=== PATIENT | male | born 1960 | race African-American/Black ===

== ENCOUNTER 2018-09-10 13:21 | Emergency (ER) | payer OTHER ==
[2018-09-10] MEDS ORDERED: MORPHINE SULFATE 10 MG/ML INJ IV ONE (14:01)
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
[2018-09-10 14:35] LABS: ABSOLUTE EOSINOPHILS # (AUTO) 0.2 10^3/uL (0.0-0.6); ABSOLUTE LYMPHOCYTES (AUTO) 1.1 10^3/uL (0.5-4.7); ABSOLUTE MONOCYTES (AUTO) 0.5 10^3/uL (0.1-1.4); ABSOLUTE NEUT (AUTO) 3.6 10^3/uL (1.7-8.2); BASOPHILS % (AUTO) 0.6 % (0-2); EOSINOPHILS % (AUTO) 2.9 % (0-6); HEMATOCRIT 38.5 % (37.9-51.0); HEMOGLOBIN 12.7 g/dL (13.5-17.0); LYMPHOCYTES % (AUTO) 19.8 % (13-45); MEAN CORPUSCULAR HEMOGLOBIN 27.2 pg (27.0-33.4); MEAN CORPUSCULAR HGB CONC 33.1 g/dL (32.0-36.0); MEAN CORPUSCULAR VOLUME 82 fl (80-97); MONOCYTES % (AUTO) 9.6 % (3-13); PLATELET COUNT 324 10^3/uL (150-450); RED BLOOD COUNT 4.68 10^6/uL (4.35-5.55); SEGMENTED NEUTROPHILS % (AUTO) 67.1 % (42-78); TOTAL CELLS COUNTED % (AUTO) 100 %; WHITE BLOOD COUNT 5.4 10^3/uL (4.0-10.5)
[2018-09-10 14:42] LABS: INTERNATIONAL RATION (INR) 0.92; PROTHROMBIN TIME 12.9 SEC (11.4-15.4)
[2018-09-10 14:43] LABS: PARTIAL THROMBOPLASTIN TIME 31.8 SEC (23.5-35.8)
[2018-09-10 14:47] LABS: APPEARANCE,URINE CLEAR; BILIRUBIN,URINE NEGATIVE (NEGATIVE); COLOR,URINE STRAW; GLUCOSE, URINE >=500 mg/dL (NEGATIVE); KETONES,URINE NEGATIVE (NEGATIVE); LEUKOCYTE ESTERASE,URINE NEGATIVE (NEGATIVE); NITRITE,URINE NEGATIVE (NEGATIVE); PROTEIN,URINE >=500 mg/dL (NEGATIVE); URINE SPECIFIC GRAVITY 1.011; UROBILINOGEN,URINE NEGATIVE mg/dL (<2.0)
[2018-09-10 14:49] LABS: ALANINE AMINOTRANSFERASE 28 U/L (21-72); ALBUMIN 3.2 g/dL (3.5-5.0); ALKALINE PHOSPHATASE 90 U/L (38-126); ASPARTATE AMINO TRANSFERASE 24 U/L (17-59); BILIRUBIN,DIRECT 0.2 mg/dL (0.0-0.4); BILIRUBIN,TOTAL 0.3 mg/dL (0.2-1.3); BLOOD UREA NITROGEN 21 mg/dL (7-20); CALCIUM 8.5 mg/dL (8.4-10.2); GLUCOSE 338 mg/dL (75-110); TOTAL PROTEIN 5.9 g/dL (6.3-8.2)
[2018-09-10 14:54] LABS: CARBON DIOXIDE 30 mmol/L (22-30); CHLORIDE 104 mmol/L (98-107); SODIUM 138.3 mmol/L (137-145)
[2018-09-10 14:55] LABS: ANION GAP 4 (5-19)
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
[2018-09-10] MEDS ORDERED: HYDROMORPHONE HCL INJ/PF 2 MG/ML AMPULE IV ONE (15:12)
--- NOTE | 2018-09-10 16:48 | EKG REPORT ---
SEVERITY:- ABNORMAL ECG - SINUS RHYTHM LEFT ATRIAL ABNORMALITY LEFT ANTERIOR FASCICULAR BLOCK NONSPECIFIC T ABNORMALITIES, LATERAL LEADS : Confirmed by: Mike Santiago MD 10-Sep-2018 16:47:47
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
[2018-09-10] MEDS ORDERED: HYDRALAZINE HCL INJ/PF 20 MG/1 ML SDV IV ONE (17:17)
[2018-09-10] MEDS ORDERED: HYDROCODONE/ACETAMINOPHEN 5-325 MG (6 TAB/ER DISP) PO PRN (18:18)
[2018-09-10 18:37] VITALS: BP 145/94
--- NOTE | 2018-09-10 20:37 | EKG REPORT ---
SEVERITY:- ABNORMAL ECG - SINUS RHYTHM FIRST DEGREE AV BLOCK LEFT ATRIAL ABNORMALITY LEFT ANTERIOR FASCICULAR BLOCK NONSPECIFIC T ABNORMALITIES, LATERAL LEADS BORDERLINE PROLONGED QT INTERVAL : Confirmed by: Mike Santiago MD 10-Sep-2018 20:36:25
== END 2018-09-10 18:38 | disposition home or self-care (01) ==
LOC: ER 13:21
DX: R07.89 Other chest pain (principal); R10.811 Right upper quadrant abdominal tenderness; V43.52XA Car driver injured in collision with other type car in traffic accident, initial encounter; W22.11XA Striking against or struck by driver side automobile airbag, initial encounter; I10 Essential (primary) hypertension; E10.9 Type 1 diabetes mellitus without complications; Z79.82 Long term (current) use of aspirin
CPT/HCPCS: 93005; 99284; 96374; 96375; 36415; 85025; 85610; 85730; 80053; 81001; 84484; 71045; 70450; 71260; 72125; 74177; 93010; J0360; J2270; J1170

== ENCOUNTER 2018-09-22 13:38 | Emergency (ER) | payer OTHER ==
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
[2018-09-22 16:30] VITALS: BP 178/91
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
== END 2018-09-22 16:36 | disposition home or self-care (01) ==
LOC: ER 13:38
DX: R07.89 Other chest pain (principal); S20.219A Contusion of unspecified front wall of thorax, initial encounter; S29.011A Strain of muscle and tendon of front wall of thorax, initial encounter; V49.9XXA Car occupant (driver) (passenger) injured in unspecified traffic accident, initial encounter; E10.9 Type 1 diabetes mellitus without complications
CPT/HCPCS: 71046; 99283

== ENCOUNTER 2019-01-28 13:28 | Emergency (ER) | payer OTHER ==
[2019-01-28] MEDS ORDERED: LISINOPRIL 10 MG TABLET PO ONE (13:49)
--- NOTE | 2019-01-28 13:52 | ER Document Report ---
ED Medical Screen (RME) - General Chief Complaint: High Blood Pressure Stated Complaint: COUGH/POSSIBLE HIGH BLOOD PRESSURE Time Seen by Provider: 01/28/19 13:49 Mode of Arrival: Ambulatory Information source: Patient Notes: Patient presents complaining of productive cough for the past 3 weeks. Patient reports shortness of breath with the cough. Patient went to an urgent care and was told he had elevated blood pressure with an abnormal EKG. Patient states he has been out of his blood pressure medicine for the past 2 weeks. I have greeted and performed a rapid initial assessment of this patient. A comprehensive ED assessment and evaluation of the patient, analysis of test results and completion of the medical decision making process will be conducted by additional ED providers. TRAVEL OUTSIDE OF THE [place] IN LAST 30 DAYS: No - Related Data Allergies/Adverse Reactions: No Known Allergies Allergy (Verified 09/22/18 13:40) Past Medical History Endocrine Medical History: Reports: Hx Diabetes Mellitus Type 1 Renal/ Medical History: Denies: Hx Peritoneal Dialysis Past Surgical History: Reports: Hx Orthopedic Surgery - back Physical Exam - Vital signs Vitals: Temp Pulse Resp BP Pulse Ox 98 F 80 16 201/101 H 96 01/28/19 13:30 01/28/19 13:30 01/28/19 13:30 01/28/19 13:30 01/28/19 13:30 - Respiratory Respiratory status: No respiratory distress Breath sounds: Nonproductive cough Course - Vital Signs Vital signs: Temp Pulse Resp BP Pulse Ox 98 F 80 16 201/101 H 96 01/28/19 13:30 01/28/19 13:30 01/28/19 13:30 01/28/19 13:30 01/28/19 13:30
--- NOTE | 2019-01-28 14:22 | RADIOLOGY REPORT (SQ) ---
EXAM DESCRIPTION: CHEST 2 VIEWS COMPLETED DATE/TIME: 01/28/2019 2:08 pm REASON FOR STUDY: cough COMPARISON: 09/22/2018 NUMBER OF VIEWS: Two view. TECHNIQUE: Frontal and lateral radiographic views of the chest acquired. LIMITATIONS: None. FINDINGS: LUNGS AND PLEURA: Peribronchial cuffing and interstitial changes. No consolidation, effus ion, or pneumothorax. MEDIASTINUM AND HILAR STRUCTURES: No masses. No contour abnormalities. HEART AND VASCULAR STRUCTURES: Cardiac enlargement. BONES: No acute findings. HARDWARE: None in the chest. OTHER: No other significant finding. IMPRESSION: REACTIVE AIRWAY DISEASE VERSUS VIRAL SYNDROME. NO CONSOLIDATION. TECHNICAL DOCUMENTATION: JOB ID: [id number] [employer]- All Rights Reserved Reading location - IP/workstation name: [email or web address]
[2019-01-28 16:51] LABS: ABSOLUTE EOSINOPHILS # (AUTO) 0.2 10^3/uL (0.0-0.6); ABSOLUTE LYMPHOCYTES (AUTO) 1.1 10^3/uL (0.5-4.7); ABSOLUTE MONOCYTES (AUTO) 0.6 10^3/uL (0.1-1.4); ABSOLUTE NEUT (AUTO) 3.1 10^3/uL (1.7-8.2); BASOPHILS % (AUTO) 0.9 % (0-2); EOSINOPHILS % (AUTO) 4.8 % (0-6); HEMATOCRIT 39.7 % (37.9-51.0); LYMPHOCYTES % (AUTO) 20.8 % (13-45); MEAN CORPUSCULAR HEMOGLOBIN 27.4 pg (27.0-33.4); MEAN CORPUSCULAR HGB CONC 32.9 g/dL (32.0-36.0); MEAN CORPUSCULAR VOLUME 84 fl (80-97); MONOCYTES % (AUTO) 12.6 % (3-13); PLATELET COUNT 337 10^3/uL (150-450); RED BLOOD COUNT 4.75 10^6/uL (4.35-5.55); RED CELL DISTRIBUTION WIDTH 13.1 % (11.5-14.0); SEGMENTED NEUTROPHILS % (AUTO) 60.9 % (42-78); TOTAL CELLS COUNTED % (AUTO) 100 %; WHITE BLOOD COUNT 5.1 10^3/uL (4.0-10.5)
[2019-01-28 17:10] LABS: ALANINE AMINOTRANSFERASE 25 U/L (21-72); ALBUMIN 3.3 g/dL (3.5-5.0); ALKALINE PHOSPHATASE 105 U/L (38-126); ANION GAP 7 (5-19); ASPARTATE AMINO TRANSFERASE 25 U/L (17-59); BILIRUBIN,DIRECT 0.3 mg/dL (0.0-0.4); BILIRUBIN,TOTAL 0.5 mg/dL (0.2-1.3); BLOOD UREA NITROGEN 22 mg/dL (7-20); CALCIUM 8.6 mg/dL (8.4-10.2); CARBON DIOXIDE 28 mmol/L (22-30); CHLORIDE 107 mmol/L (98-107); GLUCOSE 171 mg/dL (75-110); POTASSIUM 4.8 mmol/L (3.6-5.0); SODIUM 142.4 mmol/L (137-145); TOTAL PROTEIN 6.4 g/dL (6.3-8.2)
--- NOTE | 2019-01-28 17:34 | EKG REPORT ---
SEVERITY:- ABNORMAL ECG - SINUS RHYTHM FIRST DEGREE AV BLOCK PROBABLE LEFT ATRIAL ABNORMALITY LEFT ANTERIOR FASCICULAR BLOCK NONSPECIFIC T ABNORMALITIES, LATERAL LEADS BORDERLINE PROLONGED QT INTERVAL : Confirmed by: Nidia Hutchins MD 28-Jan-2019 17:33:33
[2019-01-28] MEDS ORDERED: BENZONATATE 100 MG CAPSULE PO ONE (19:01)
[2019-01-28] MEDS ORDERED: ALBUTEROL SULFATE HFA (90 MCG/PUFF) 200 PUFF/8.5 GM MDI IH ONE (19:02)
--- NOTE | 2019-01-28 19:02 | ER Document Report ---
ED General - General Chief Complaint: High Blood Pressure Stated Complaint: COUGH/POSSIBLE HIGH BLOOD PRESSURE Time Seen by Provider: 01/28/19 13:49 Mode of Arrival: Ambulatory Notes: Patient is a 58-year-old male with past medical history of insulin-dependent diabetes, essential hypertension, currently off all medications, presents today from an urgent care due to concerns of 3 weeks of cough, elevated blood pressure and an abnormal EKG. The patient reports that he went to the urgent care for refill his blood pressure medications and to make sure that he did not need antibiotics. States he does not know why they got an EKG. Patient does report that he developed shortness of breath during episodes of severe coughing but not outside of these episodes. Denies any orthopnea, exertional dyspnea and denies any chest pain. States that he is also had nasal congestion, runny nose and a mild sore throat. Denies any history of CHF or coronary artery disease. Has not seen his primary doctor regarding today's concerns. Has not noted any seems to improve his symptoms, somewhat worsened by laughing or exhaling forcefully. Regards to symptoms as being mild to moderate, constant since onset. Or notes that his cough is somewhat worse in the morning. Not a smoker nor has he ever been. TRAVEL OUTSIDE OF THE [place] IN LAST 30 DAYS: No - Related Data Allergies/Adverse Reactions: No Known Allergies Allergy (Verified 09/22/18 13:40) Past Medical History - General Information source: Patient - Social History Smoking Status: Never Smoker Chew tobacco use (# tins/day): No Frequency of alcohol use: None Drug Abuse: None Family History: Reviewed & Not Pertinent Patient has suicidal ideation: No Patient has homicidal ideation: No - Past Medical History Cardiac Medical History: Reports: Hx Hypertension Endocrine Medical History: Reports: Hx Diabetes Mellitus Type 1 Renal/ Medical History: Denies: Hx Peritoneal Dialysis Past Surgical History: Reports: Hx Orthopedic Surgery - back Review of Systems - Review of Systems Notes: Constitutional: Negative for fever. HENT: Negative for sore throat. Eyes: Negative for visual changes. Cardiovascular: Negative for chest pain. Respiratory: Positive for cough Gastrointestinal: Negative for abdominal pain, vomiting or diarrhea. Genitourinary: Negative for dysuria. Musculoskeletal: Negative for back pain. Skin: Negative for rash. Neurological: Negative for headaches, weakness or numbness. 10 point ROS negative except as marked above and in HPI. Physical Exam - Vital signs Vitals: Temp Pulse Resp BP Pulse Ox 98 F 80 16 201/101 H 96 01/28/19 13:30 01/28/19 13:30 01/28/19 13:30 01/28/19 13:30 01/28/19 13:30 Interpretation: Hypertensive Notes: PHYSICAL EXAMINATION: GENERAL: Well-appearing, well-nourished and in no acute distress. HEAD: Atraumatic, normocephalic. EYES: Pupils equal round and reactive to light, extraocular movements intact, sclera anicteric, conjunctiva are normal. ENT: nares patent, oropharynx clear without exudates. Moist mucous membranes. NECK: Normal range of motion, supple without lymphadenopathy LUNGS: Breath sounds clear to auscultation bilaterally and equal. No wheezes rales or rhonchi. No B-lines. HEART: Regular rate and rhythm without murmurs, no pericardial effusion on bedside echocardiogram. ABDOMEN: Soft, nontender, normoactive bowel sounds. No guarding, no rebound. No masses appreciated. EXTREMITIES: Normal range of motion, trace edema of the bilateral lower extremities that is equal and symmetric. no cyanosis. NEUROLOGICAL: No focal neurological deficits. Moves all extremities spontaneously and on command. PSYCH: Normal mood, normal affect. SKIN: Warm, Dry, normal turgor, no rashes or lesions noted. Course - Re-evaluation Re-evalutation: 01/28/19 19:01 Patient presents with a clinical history and exam most consistent with an acute viral bronchitis. Patient was sent from an urgent care due to concerns of an abnormal EKG. Review of EKG shows that is identical to an EKG obtained in August of this year. It is uncertain to me why they obtain an EKG at the [facility] as the patient was complaining of cough and shortness of breath during the episodes of coughing but not outside of that time. The patient is very clear to state me that he has no shortness of breath or chest pain at this time and only developed shortness of breath when he has a very pronounced episode of coughing. He has no orthopnea, no exertional dyspnea, has no evidence of pulmonary edema on chest x-ray. Patient is overall well in appearance without tachypnea, hypoxemia, tachycardia, or difficulty with ambulation. Breath sounds are clear bilaterally. No fever. Labs show chronic kidney disease unchanged from previous. Patient has been out of his lisinopril for the past 2 weeks and I have represcribed this medication. At this time will discharge with return precautions and follow-up recommendations. Verbal discharge instructions given a the bedside and opportunity for questions given. Medication warnings reviewed. Patient is in agreement with this plan and has verbalized understanding of return precautions and the need for primary care follow-up in the next 24-[address]. - Vital Signs Vital signs: Temp Pulse Resp BP Pulse Ox 98 F 75 16 194/103 H 96 01/28/19 13:30 01/28/19 15:46 01/28/19 13:30 01/28/19 15:46 01/28/19 13:30 - Laboratory Result Diagrams: 01/28/19 16:35 01/28/19 16:35 Laboratory results interpreted by me: 01/28/19 01/28/19 16:35 16:35 Hgb 13.0 L BUN 22 H Creatinine 1.55 H Est GFR ( Amer) 56 L Est GFR (Non-Af Amer) 46 L Glucose 171 H Albumin 3.3 L - Diagnostic Test Radiology reviewed: Image reviewed, Reports reviewed Radiology results interpreted by me: 01/28/19 19:02 Chest x-ray: No acute infiltrate or pneumothorax - EKG Interpretation by Me Additional EKG results interpreted by me: 01/28/19 19:02 Sinus rhythm, first-degree no ST elevations or depressions. Lateral T wave inversions unchanged from previous. QTC 482. Discharge - Discharge Clinical Impression: Essential hypertension, Persistent cough Condition: Good Disposition: HOME, SELF-CARE Additional Instructions: You were seen today for blood pressure that was high. This is a long-term risk factor for multiple medical problems including heart attack and stroke. However, the blood pressure in of itself will not cause you to have an acute stroke or heart attack over the course of just several days or weeks. You need to have a gradual reduction of your blood pressure back to normal levels over the next several months in conjunction with your primary care physician. Return if you develop headache, weakness, numbness, chest pain, pass out, or have any other symptoms that are concerning to you. You were seen for symptoms most consistent with bronchitis. This can take up to 12 weeks to fully resolve. This is generally due to a viral infection. Please follow-up with your primary doctor in the next 2-3 days. Return if you develop worsening cough, vomiting, fever >100.4, pass out, begin coughing blood, or have any other symptoms that are concerning to you. Please use the medications prescribed today as directed. Prescriptions: Lisinopril 20 mg PO DAILY #30 tablet
[2019-01-28 19:16] VITALS: BP 187/101
== END 2019-01-28 19:16 | disposition home or self-care (01) ==
LOC: ER 13:28
DX: I12.9 Hypertensive chronic kidney disease with stage 1 through stage 4 chronic kidney disease, or unspecified chronic kidney disease (principal); E10.22 Type 1 diabetes mellitus with diabetic chronic kidney disease; N18.9 Chronic kidney disease, unspecified; T46.4X6A Underdosing of angiotensin-converting-enzyme inhibitors, initial encounter; Z91.128 Patient's intentional underdosing of medication regimen for other reason; Z91.14 Patient's other noncompliance with medication regimen; R05 Cough; R09.81 Nasal congestion; R09.89 Other specified symptoms and signs involving the circulatory and respiratory systems; J02.9 Acute pharyngitis, unspecified
CPT/HCPCS: 93005; 99284; 36415; 85025; 80053; 84484; 71046; 93010; J3490

== ENCOUNTER → 2019-10-12 | Outpatient (CLI) | payer BC ==
[2019-10-12 11:39] LABS: APPEARANCE,URINE CLEAR; BILIRUBIN,URINE NEGATIVE (NEGATIVE); COLOR,URINE YELLOW; GLUCOSE, URINE 50 mg/dL (NEGATIVE); KETONES,URINE NEGATIVE (NEGATIVE); LEUKOCYTE ESTERASE,URINE NEGATIVE (NEGATIVE); NITRITE,URINE NEGATIVE (NEGATIVE); PROTEIN,URINE >=500 mg/dL (NEGATIVE); UROBILINOGEN,URINE NEGATIVE mg/dL (<2.0)
[2019-10-12 11:42] LABS: ABSOLUTE BASOPHILS # (AUTO) 0.1 10^3/uL (0.0-0.2); ABSOLUTE EOSINOPHILS # (AUTO) 0.2 10^3/uL (0.0-0.6); ABSOLUTE LYMPHOCYTES (AUTO) 0.7 10^3/uL (0.5-4.7); ABSOLUTE MONOCYTES (AUTO) 0.5 10^3/uL (0.1-1.4); ABSOLUTE NEUT (AUTO) 2.9 10^3/uL (1.7-8.2); BASOPHILS % (AUTO) 1.3 % (0-2); EOSINOPHILS % (AUTO) 4.2 % (0-6); HEMATOCRIT 33.5 % (37.9-51.0); HEMOGLOBIN 11.1 g/dL (13.5-17.0); LYMPHOCYTES % (AUTO) 16.7 % (13-45); MEAN CORPUSCULAR HGB CONC 33.2 g/dL (32.0-36.0); MEAN CORPUSCULAR VOLUME 84 fl (80-97); MONOCYTES % (AUTO) 10.9 % (3-13); PLATELET COUNT 291 10^3/uL (150-450); RED BLOOD COUNT 3.96 10^6/uL (4.35-5.55); RED CELL DISTRIBUTION WIDTH 12.7 % (11.5-14.0); SEGMENTED NEUTROPHILS % (AUTO) 66.9 % (42-78); TOTAL CELLS COUNTED % (AUTO) 100 %; WHITE BLOOD COUNT 4.3 10^3/uL (4.0-10.5)
[2019-10-12 12:02] LABS: ALBUMIN 3.3 g/dL (3.5-5.0); ANION GAP 7 (5-19); BLOOD UREA NITROGEN 46 mg/dL (7-20); CALCIUM 8.4 mg/dL (8.4-10.2); CARBON DIOXIDE 26 mmol/L (22-30); CHLORIDE 109 mmol/L (98-107); GLUCOSE 177 mg/dL (75-110); IRON(TIBC) 70.3 ug/dL (49-181); PHOSPHORUS 4.2 mg/dL (2.5-4.5); POTASSIUM 5.1 mmol/L (3.6-5.0)
--- NOTE | 2019-10-12 15:19 | RADIOLOGY REPORT (SQ) ---
EXAM DESCRIPTION: U/S RETROPERITON (RENAL/AORTA) COMPLETED DATE/TIME: 10/12/2019 11:20 am REASON FOR STUDY: CKD III (N18.3) N18.3 CHRONIC KIDNEY DISEASE, STAGE 3 (MODERATE) COMPARISON: None. TECHNIQUE: Dynamic and static grayscale images acquired of the kidneys and bladder and recorded on P ACS. Additional selected color Doppler and spectral images recorded. LIMITATIONS: None. FINDINGS: RIGHT KIDNEY: The right kidney measures 11.3 cm in length. The echotexture of the renal p arenchymal is normal. The corticomedullary differentiation is preserved. There is no calcification, hydronephrosis or solid mass. LEFT KIDNEY: The left kidney measures 11 cm in length. The echotexture of the renal parenchymal is normal. The corticomedullary differentiation is preserved. There is an ovoid hypoechoic lesion in t he superior pole of the kidney that is favored to represent a cyst. There is no calcification, hydro nephrosis or solid mass. OTHER FINDINGS: No urinary bladder masses. IMPRESSION: No abnormality of the kidneys. TECHNICAL DOCUMENTATION: JOB ID: [id number] [employer]- All Rights Reserved Reading location - IP/workstation name: [email or web address]
[2019-10-14 13:20] LABS: MICROALBUMIN URINE 2232.3 ug/mL (Not Estab.)
== END ==
LOC: RAD 10:46
PROVIDERS: ATTEND Physician Assistant Medical
DX: N18.3 Chronic kidney disease, stage 3 (moderate) (principal); I12.9 Hypertensive chronic kidney disease with stage 1 through stage 4 chronic kidney disease, or unspecified chronic kidney disease; D63.1 Anemia in chronic kidney disease; E87.5 Hyperkalemia; E11.9 Type 2 diabetes mellitus without complications
CPT/HCPCS: 36415; 76770; 80069; 81001; 82043; 82570; 82728; 83540; 83550; 83970; 84443; 85025

== ENCOUNTER 2019-12-21 10:37 | Emergency (ER) | payer BC ==
--- NOTE | 2019-12-21 10:51 | ER Document Report ---
ED Medical Screen (RME) - General Chief Complaint: Abnormal Lab Results Stated Complaint: ABNORMAL LABS Time Seen by Provider: 12/21/19 10:43 Primary Care Provider: ИРИНА BUTLER PA-C [Primary Care Provider] - Follow up as needed Mode of Arrival: Ambulatory Information source: Patient Notes: 59-year-old male with history of high blood pressure chronic kidney disease presents to the emergency department with reports that his primary care provider, Kwame ellington, called him and told him to come the emergency department because his potassium was 6.3. He reports he had his labs drawn yesterday. Patient reports he feels fine no complaints. Denies chest pain shortness of breath. Denies fever vomiting diarrhea. I have greeted and performed a rapid initial assessment of this patient. A comprehensive ED assessment and evaluation of the patient, analysis of test results and completion of the medical decision making process will be conducted by additional ED providers. TRAVEL OUTSIDE OF THE [place] IN LAST 30 DAYS: No - Related Data Allergies/Adverse Reactions: No Known Allergies Allergy (Verified 09/22/18 13:40) Home Medications: asa, lisinopril, amlodipine, atorvastatin, clonidine, vit D, fe, calcitriol, humalog Past Medical History - Social History Chew tobacco use (# tins/day): No Frequency of alcohol use: None Drug Abuse: None - Past Medical History Cardiac Medical History: Reports: Hx Hypertension Endocrine Medical History: Reports: Hx Diabetes Mellitus Type 1 Renal/ Medical History: Denies: Hx Peritoneal Dialysis Past Surgical History: Reports: Hx Orthopedic Surgery - back Physical Exam - Vital signs Vitals: Temp Pulse Resp BP Pulse Ox 97.8 F 77 16 202/96 H 97 12/21/19 10:42 12/21/19 10:42 12/21/19 10:42 12/21/19 10:42 12/21/19 10:42 Course - Vital Signs Vital signs: Temp Pulse Resp BP Pulse Ox 97.8 F 77 16 202/96 H 97 12/21/19 10:44 12/21/19 10:42 12/21/19 10:42 12/21/19 10:42 12/21/19 10:42 Doctor's Discharge - Discharge Referrals: ИРИНА BUTLER PA-C [Primary Care Provider] - Follow up as needed
--- NOTE | 2019-12-21 11:05 | ER Document Report ---
ED General - General Chief Complaint: Abnormal Lab Results Stated Complaint: ABNORMAL LABS Time Seen by Provider: 12/21/19 10:43 Primary Care Provider: ИРИНА BUTLER PA-C [ALLIED HEALTH PROFESSIONAL] - Follow up as needed Mode of Arrival: Ambulatory Notes: CHIEF COMPLAINT: Abnormal lab work HPI: 59-year-old male with history of type 1 diabetes who takes 70/30 insulin twice daily as well as chronic kidney disease presenting for possible hyperkalemia. Patient states he had lab work drawn routinely by his PCP yesterday was called at work today told he needed to come to the emergency dep artment because his potassium was elevated at 6.3. Patient denies any physical complaints at this time. ROS: See HPI - all other systems were reviewed and are otherwise negative Constitutional: no fever Eyes: no drainage, no blurred vision ENT: no runny nose, no sore throat Cardiovascular: no chest pain Resp: no SOB, no cough GI: no vomiting, no diarrhea, no abdominal pain : no dysuria Integumentary: no rash Allergy: no hives Musculoskeletal: no extremity pain or swelling Neurological: no numbness/tingling, no weakness MEDICATIONS: I agree with the patient medications as charted by the RN. ALLERGIES: I agree with the allergies as charted by the RN. PAST MEDICAL HISTORY/PAST SURGICAL HISTORY: Reviewed and agree as charted by RN. SOCIAL HISTORY: Reviewed and agree as charted by RN. FAMILY HISTORY: No significant familial comorbid conditions directly related to patient complaint EXAM: Reviewed vital signs as charted by RN. CONSTITUTIONAL: Alert and oriented and responds appropriately to questions. Well-appearing; well-nourished HEAD: Normocephalic; atraumatic EYES: PERRL; Conjunctivae clear, sclerae non-icteric ENT: normal nose; no rhinorrhea; moist mucous membranes; pharynx without lesions noted, no uvula edema or deviation, no tonsillar hypertrophy, phonation normal NECK: Supple without meningismus; non-tender; no cervical lymphadenopathy, no masses CARD: RRR; no murmurs, no clicks, no rubs, no gallops; symmetric distal pulses RESP: Normal chest excursion without splinting or tachypnea; breath sounds clear and equal bilaterally; no wheezes, no rhonchi, no rales, pulse oximetry 98% on room air not hypoxic ABD/GI: Normal bowel sounds; non-distended; soft, non-tender, no rebound, no guarding; no palpable organomegaly or masses. BACK: The back appears normal and is non-tender to palpation, there is no CVA tenderness EXT: Normal ROM in all joints; non-tender to palpation; no cyanosis, no effusions, no edema SKIN: Normal color for age and race; warm; dry; good turgor; no acute lesions noted NEURO: Moves all extremities equally; Motor and sensory function intact PSYCH: The patient's mood and manner are appropriate. Grooming and personal hygiene are appropriate. MDM: 59-year-old male presenting for possible hyperkalemia. Will recheck lab work and proceed accordingly TRAVEL OUTSIDE OF THE [place] IN LAST 30 DAYS: No - Related Data Allergies/Adverse Reactions: No Known Allergies Allergy (Verified 09/22/18 13:40) Home Medications: asa, lisinopril, amlodipine, atorvastatin, clonidine, vit D, fe, calcitriol, humalog Past Medical History - General Information source: Patient - Social History Smoking Status: Never Smoker Chew tobacco use (# tins/day): No Frequency of alcohol use: None Drug Abuse: None Family History: Reviewed & Not Pertinent Patient has suicidal ideation: No Patient has homicidal ideation: No - Past Medical History Cardiac Medical History: Reports: Hx Hypertension Endocrine Medical History: Reports: Hx Diabetes Mellitus Type 1 Renal/ Medical History: Denies: Hx Peritoneal Dialysis Past Surgical History: Reports: Hx Orthopedic Surgery - back Physical Exam - Vital signs Vitals: Temp Pulse Resp BP Pulse Ox 97.8 F 77 16 202/96 H 97 12/21/19 10:42 12/21/19 10:42 12/21/19 10:42 12/21/19 10:42 12/21/19 10:42 Course - Re-evaluation Re-evalutation: 12/21/19 12:04 Patient was noted to be mildly hypertensive. Patient states he did take his blood pressure medication this morning 12/21/19 12:[address] Roberto Ace, patient supervisor [employer]. Request we have patient stop the lisinopril. Patient does state that he is on clonidine and amlodipine. Dr. Ace indicates we should increase the clonidine dosing to 0.2 twice daily. Patient will be given treatment for hyperkalemia here, recheck potassium 2 hours after treatment and fluids if it is trending down patient may be discharged as he is otherwise asymptomatic to follow-up for repeat lab work on Tuesday with Dr. Ace 12/21/19 16:33 Creatinine down to 3.61, potassium down to 4.5. Blood pressure is improved. Patient is to stop lisinopril start clonidine 0.2 mg twice daily. Continue amlodipine, follow-up with Dr. Ace on Tuesday - Vital Signs Vital signs: Temp Pulse Resp BP Pulse Ox 98.0 F 77 20 207/93 H 99 12/21/19 13:33 12/21/19 10:42 12/21/19 15:01 12/21/19 14:31 12/21/19 15:01 - Laboratory Result Diagrams: 12/21/19 11:49 12/21/19 15:25 Laboratory results interpreted by me: 12/21/19 12/21/19 12/21/19 11:49 11:49 13:24 RBC 3.51 L Hgb 10.0 L Hct 29.7 L Potassium 5.8 H Chloride Anion Gap BUN 38 H Creatinine 3.74 H Est GFR ( Amer) 20 L Est GFR (MDRD) Non-Af 17 L Glucose 162 H POC Glucose 142 H Total Protein 6.1 L Albumin 3.2 L 12/21/19 15:25 RBC Hgb Hct Potassium Chloride 109 H Anion Gap 4 L BUN 37 H Creatinine 3.61 H Est GFR ( Amer) 21 L Est GFR (MDRD) Non-Af 17 L Glucose POC Glucose Total Protein Albumin 3.4 L Discharge - Discharge Clinical Impression: Hyperkalemia, Renal insufficiency Condition: Stable Disposition: HOME, SELF-CARE Additional Instructions: Stop the lisinopril. Increase your daily dose of clonidine to 0.2 mg twice daily. Lower potassium containing foods at home. Follow-up with Dr. Ace on Tuesday for repeat potassium levels and evaluation Referrals: ИРИНА BUTLER PA-C [ALLIED HEALTH PROFESSIONAL] - Follow up as needed
[2019-12-21 12:06] LABS: ABSOLUTE BASOPHILS # (AUTO) 0.1 10^3/uL (0.0-0.2); ABSOLUTE EOSINOPHILS # (AUTO) 0.2 10^3/uL (0.0-0.6); ABSOLUTE LYMPHOCYTES (AUTO) 0.8 10^3/uL (0.5-4.7); ABSOLUTE MONOCYTES (AUTO) 0.6 10^3/uL (0.1-1.4); ABSOLUTE NEUT (AUTO) 3.7 10^3/uL (1.7-8.2); EOSINOPHILS % (AUTO) 3.7 % (0-6); HEMATOCRIT 29.7 % (37.9-51.0); LYMPHOCYTES % (AUTO) 15.4 % (13-45); MEAN CORPUSCULAR HEMOGLOBIN 28.6 pg (27.0-33.4); MEAN CORPUSCULAR HGB CONC 33.8 g/dL (32.0-36.0); MEAN CORPUSCULAR VOLUME 85 fl (80-97); MONOCYTES % (AUTO) 10.9 % (3-13); PLATELET COUNT 310 10^3/uL (150-450); RED BLOOD COUNT 3.51 10^6/uL (4.35-5.55); RED CELL DISTRIBUTION WIDTH 13.6 % (11.5-14.0); TOTAL CELLS COUNTED % (AUTO) 100 %; WHITE BLOOD COUNT 5.3 10^3/uL (4.0-10.5)
[2019-12-21 12:22] LABS: ALBUMIN 3.2 g/dL (3.5-5.0); ALKALINE PHOSPHATASE 96 U/L (38-126); ANION GAP 6 (5-19); ASPARTATE AMINO TRANSFERASE 21 U/L (17-59); BILIRUBIN,TOTAL 0.2 mg/dL (0.2-1.3); BLOOD UREA NITROGEN 38 mg/dL (7-20); CALCIUM 8.5 mg/dL (8.4-10.2); CARBON DIOXIDE 27 mmol/L (22-30); CHLORIDE 106 mmol/L (98-107); GLUCOSE 162 mg/dL (75-110); POTASSIUM 5.8 mmol/L (3.6-5.0); TOTAL PROTEIN 6.1 g/dL (6.3-8.2)
[2019-12-21] MEDS ORDERED: CALCIUM GLUCONATE 1000 MG/10 ML INJ IV ONE (12:37)
[2019-12-21] MEDS ORDERED: INSULIN REG, HUMAN 100 UNIT/ML 3 ML VIAL (PYX) IV ONE (12:38)
[2019-12-21] MEDS ORDERED: DEXTROSE 50%-WATER 25 GM/50 ML DISP.SYRIN IV ONE (12:38)
[2019-12-21] MEDS ORDERED: NORMAL SALINE 1000 ML 1,000 ML IV ONE (12:39)
[2019-12-21] MEDS ORDERED: SODIUM POLYSTYRENE SULFONATE 15 GM/60 ML PO ONE (12:39)
[2019-12-21] MEDS ORDERED: CLONIDINE HCL 0.1 MG TABLET PO ONE (14:13)
[2019-12-21 15:59] LABS: ALBUMIN 3.4 g/dL (3.5-5.0); ALKALINE PHOSPHATASE 106 U/L (38-126); ASPARTATE AMINO TRANSFERASE 21 U/L (17-59); BILIRUBIN,TOTAL 0.4 mg/dL (0.2-1.3); BLOOD UREA NITROGEN 37 mg/dL (7-20); CARBON DIOXIDE 28 mmol/L (22-30); CHLORIDE 109 mmol/L (98-107); GLUCOSE 76 mg/dL (75-110); TOTAL PROTEIN 6.3 g/dL (6.3-8.2)
[2019-12-21 16:26] LABS: ANION GAP 4 (5-19); POTASSIUM 4.5 mmol/L (3.6-5.0)
[2019-12-21 16:58] VITALS: BP 186/92
--- NOTE | 2019-12-23 11:07 | EKG REPORT ---
SEVERITY:- ABNORMAL ECG - SINUS RHYTHM PROBABLE LEFT ATRIAL ABNORMALITY LEFT ANTERIOR FASCICULAR BLOCK NONSPECIFIC T ABNORMALITIES, LATERAL LEADS : Confirmed by: Caroline Ramirez 23-Dec-2019 11:05:50
== END 2019-12-21 16:58 | disposition home or self-care (01) ==
LOC: ER 10:37
DX: E87.5 Hyperkalemia (principal); N28.9 Disorder of kidney and ureter, unspecified; E10.9 Type 1 diabetes mellitus without complications; Z79.4 Long term (current) use of insulin
CPT/HCPCS: 93005; 99283; 96374; 96361; 96375; 36415; 82962; 85025; 87070; 80053; 93010; J0610; J3490; J1815; J7030

== ENCOUNTER → 2020-01-14 | Day surgery (SDC) | payer BC ==
[2020-01-14 06:53] LABS: ABSOLUTE EOSINOPHILS # (AUTO) 0.3 10^3/uL (0.0-0.6); ABSOLUTE LYMPHOCYTES (AUTO) 1.1 10^3/uL (0.5-4.7); ABSOLUTE MONOCYTES (AUTO) 0.7 10^3/uL (0.1-1.4); BASOPHILS % (AUTO) 0.9 % (0-2); EOSINOPHILS % (AUTO) 5.5 % (0-6); HEMATOCRIT 32.3 % (37.9-51.0); HEMOGLOBIN 10.7 g/dL (13.5-17.0); MEAN CORPUSCULAR HEMOGLOBIN 27.7 pg (27.0-33.4); MEAN CORPUSCULAR VOLUME 84 fl (80-97); MONOCYTES % (AUTO) 13.5 % (3-13); PLATELET COUNT 293 10^3/uL (150-450); RED BLOOD COUNT 3.85 10^6/uL (4.35-5.55); RED CELL DISTRIBUTION WIDTH 13.3 % (11.5-14.0); SEGMENTED NEUTROPHILS % (AUTO) 59.1 % (42-78); TOTAL CELLS COUNTED % (AUTO) 100 %; WHITE BLOOD COUNT 5.1 10^3/uL (4.0-10.5)
[2020-01-14 07:00] LABS: INTERNATIONAL RATION (INR) 1.07; PROTHROMBIN TIME 13.9 SEC (11.4-15.4)
[2020-01-14 07:01] LABS: PARTIAL THROMBOPLASTIN TIME 32.6 SEC (23.5-35.8)
[2020-01-14 07:05] VITALS: BP 197/108
[2020-01-14 07:12] LABS: BLOOD UREA NITROGEN 52 mg/dL (7-20); GLUCOSE 150 mg/dL (75-110)
== END ==
LOC: RAD 05:17
PROVIDERS: ATTEND Physician Assistant Medical
DX: N18.3 Chronic kidney disease, stage 3 (moderate) (principal); R80.9 Proteinuria, unspecified; Z53.9 Procedure and treatment not carried out, unspecified reason
CPT/HCPCS: 36415; 82565; 82947; 84520; 85025; 85610; 85730

== ENCOUNTER 2020-01-17 05:41 | Day surgery (SDC) | payer BC ==
[2020-01-17] MEDS ORDERED: MIDAZOLAM 2 MG/2 ML INJ ONE (08:01)
[2020-01-17] MEDS ORDERED: FENTANYL CITRATE INJ/PF 100 MCG/2 ML AMPUL ONE (08:02)
[2020-01-17 10:55] VITALS: BP 158/89
--- NOTE | 2020-01-17 13:15 | RADIOLOGY REPORT (SQ) ---
EXAM DESCRIPTION: CT BIOPSY RENAL; CT NEEDLE PLACEMENT IMAGES COMPLETED DATE/TIME: 01/17/2020 9:04 am REASON FOR STUDY: CHRONIC KIDNEY DISEASE, STAGE 3 N18.3 CHRONIC KIDNEY DISEASE, STAGE 3 (MODERATE) R80.9 PROTEINURIA, UNSPECIFIED COMPARISON: None. RADIATION DOSE: CT Rad equipment meets quality standard of care and radiation dose reduction techniq ues were employed. CTDIvol: 4.0 - 20.3 mGy. DLP: 580 mGy-cm. mGy. LIMITATIONS: None. PROCEDURE: After obtaining informed consent and explaining the risks and benefits of conscious sedat ion,the patient agreed to the procedure. Preliminary CT scanning to localize the biopsy site was performed. A site was marked on the left kid toro and time out was performed. Procedure was performed using CT fluoroscopy. Total exposure time: [address] fluoroscopic images were obtained and saved to PACS. IV conscious sedation was administered and physician direction by the registered nurse using 1 millig chasidy of Versed and 50 micrograms of fentanyl. Physiologic monitoring was provided before, during, and after sedation. The total sedation time was 30 minutes. Documentation face to face time, the performing proceduralist, spent monitoring the patient: 22 minut es. After sterile skin prep, local lidocaine for skin and deep tissue anesthesia, the left kidney was loc alized. A coaxial 18 needle was used to obtain 3 cores of tissue from the left kidney. The biopsy tr act was embolized with Gelfoam. All CT scanners at this facility use dose modulation, iterative reconstruction, and/or weight based d osing when appropriate to reduce radiation dose to as low as reasonably achievable (ALARA). [facility]: Dose Right [facility]: CareDose [facility]: Dose Right [facility]: Teradose 4D [facility]: Indotrading FINDINGS: There were no immediate complications. Pathology is pending at the time of dictation. IMPRESSION: CT GUIDED LEFT KIDNEY CORTICAL BIOPSY. COMMENT: Patient medication list reviewed:Yes- Quality ID# [id number]:Eligible professional attests to docu menting in the medical record they obtained, updated, or reviewed the patient's current medications.. TECHNICAL DOCUMENTATION: JOB ID: [id number] Quality ID #[id number]: Final reports for procedures using fluoroscopy that document radiation exposure jillian gianluca, or exposure time and number of fluorographic images (if radiation exposure indices are not avail able) Quality ID # [id number]: Final reports with documentation of one or more dose reduction techniques (e.g., Au tomated exposure control, adjustment of the mA and/or kV according to patient size, use of iterative reconstruction technique) 2010 [employer]- All Rights Reserved Reading location - IP/workstation name: [email or web address]
== END 2020-01-17 10:35 | disposition home or self-care (01) ==
LOC: RAD 05:41
PROVIDERS: ATTEND Physician Assistant Medical
DX: E11.22 Type 2 diabetes mellitus with diabetic chronic kidney disease (principal); I12.9 Hypertensive chronic kidney disease with stage 1 through stage 4 chronic kidney disease, or unspecified chronic kidney disease; N18.3 Chronic kidney disease, stage 3 (moderate); R80.9 Proteinuria, unspecified; Z79.899 Other long term (current) drug therapy; Z79.82 Long term (current) use of aspirin; E78.5 Hyperlipidemia, unspecified; Z88.8 Allergy status to other drugs, medicaments and biological substances; N25.0 Renal osteodystrophy; E87.5 Hyperkalemia
CPT/HCPCS: 82962; 88346 ×2; 88348 ×2; 88313 ×2; 77012; 50200; J2250; J3010

== ENCOUNTER → 2020-02-18 | Day surgery (SDC) | payer BC, MEDICAID ==
[2020-02-18 06:36] LABS: ABSOLUTE BASOPHILS # (AUTO) 0.1 10^3/uL (0.0-0.2); ABSOLUTE EOSINOPHILS # (AUTO) 0.3 10^3/uL (0.0-0.6); ABSOLUTE MONOCYTES (AUTO) 0.8 10^3/uL (0.1-1.4); ABSOLUTE NEUT (AUTO) 3.7 10^3/uL (1.7-8.2); EOSINOPHILS % (AUTO) 5.3 % (0-6); HEMATOCRIT 31.7 % (37.9-51.0); HEMOGLOBIN 10.6 g/dL (13.5-17.0); LYMPHOCYTES % (AUTO) 16.8 % (13-45); MEAN CORPUSCULAR HEMOGLOBIN 27.7 pg (27.0-33.4); MEAN CORPUSCULAR HGB CONC 33.5 g/dL (32.0-36.0); MEAN CORPUSCULAR VOLUME 83 fl (80-97); MONOCYTES % (AUTO) 14.4 % (3-13); PLATELET COUNT 267 10^3/uL (150-450); RED BLOOD COUNT 3.82 10^6/uL (4.35-5.55); RED CELL DISTRIBUTION WIDTH 13.1 % (11.5-14.0); SEGMENTED NEUTROPHILS % (AUTO) 62.5 % (42-78); TOTAL CELLS COUNTED % (AUTO) 100 %; WHITE BLOOD COUNT 5.9 10^3/uL (4.0-10.5)
[2020-02-18 06:42] LABS: INTERNATIONAL RATION (INR) 1.09; PROTHROMBIN TIME 14.2 SEC (11.4-15.4)
[2020-02-18 06:43] LABS: PARTIAL THROMBOPLASTIN TIME 32.3 SEC (23.5-35.8)
[2020-02-18 06:58] LABS: BLOOD UREA NITROGEN 51 mg/dL (7-20); GLUCOSE 159 mg/dL (75-110)
[2020-02-18 07:07] VITALS: BP 232/125
== END ==
LOC: RAD 05:37
PROVIDERS: ATTEND Physician Assistant Medical
DX: N18.3 Chronic kidney disease, stage 3 (moderate) (principal); Z53.8 Procedure and treatment not carried out for other reasons
CPT/HCPCS: 36415; 82565; 82947; 84520; 85025; 85610; 85730

== ENCOUNTER 2020-02-22 05:40 | Day surgery (SDC) | payer BC ==
[2020-02-22 06:33] LABS: HEMATOCRIT 29.7 % (37.9-51.0); HEMOGLOBIN 9.7 g/dL (13.5-17.0); MEAN CORPUSCULAR HEMOGLOBIN 27.8 pg (27.0-33.4); MEAN CORPUSCULAR HGB CONC 32.8 g/dL (32.0-36.0); MEAN CORPUSCULAR VOLUME 85 fl (80-97); PLATELET COUNT 290 10^3/uL (150-450); RED BLOOD COUNT 3.49 10^6/uL (4.35-5.55); RED CELL DISTRIBUTION WIDTH 13.1 % (11.5-14.0); WHITE BLOOD COUNT 6.5 10^3/uL (4.0-10.5)
[2020-02-22 06:42] LABS: INTERNATIONAL RATION (INR) 1.03; PROTHROMBIN TIME 13.5 SEC (11.4-15.4)
[2020-02-22 06:43] LABS: PARTIAL THROMBOPLASTIN TIME 32.5 SEC (23.5-35.8)
[2020-02-22 06:52] LABS: BLOOD UREA NITROGEN 67 mg/dL (7-20); GLUCOSE 171 mg/dL (75-110)
[2020-02-22] MEDS ORDERED: AMLODIPINE BESYLATE 10 MG TABLET PO ONE (09:00)
[2020-02-22] MEDS ORDERED: CLONIDINE HCL 0.2 MG TABLET PO ONE (09:00)
[2020-02-22] MEDS ORDERED: FENTANYL CITRATE INJ/PF 100 MCG/2 ML AMPUL ONE (09:59)
[2020-02-22] MEDS ORDERED: MIDAZOLAM 2 MG/2 ML INJ ONE (09:59)
--- NOTE | 2020-02-22 11:00 | RADIOLOGY REPORT (SQ) ---
EXAM DESCRIPTION: CT BIOPSY RENAL; CT NEEDLE PLACEMENT IMAGES COMPLETED DATE/TIME: 02/22/2020 10:27 am; 02/22/2020 10:25 am REASON FOR STUDY: CKD STAGE 3; CKD STAGE 3, RENAL BIOPSY N18.3 CHRONIC KIDNEY DISEASE, STAGE 3 (MOD ERATE) COMPARISON: 01/17/2020 RADIATION DOSE: CT Rad equipment meets quality standard of care and radiation dose reduction techniq ues were employed. CTDIvol: 4.8 - 20.3 mGy. DLP: 622 mGy-cm. mGy. LIMITATIONS: None. PROCEDURE: After obtaining informed consent and explaining the risks and benefits of conscious sedat ion,the patient agreed to the procedure. Preliminary CT scanning to localize the biopsy site was performed. A site was marked on the left kid toro and time out was performed. Procedure was performed using CT fluoroscopy. Total exposure time: 1 5.[address] fluoroscopic images were obtained and saved to PACS. IV conscious sedation was administered and physician direction by the registered nurse using 1 millig chasidy of Versed and 50 micrograms of fentanyl. Physiologic monitoring was provided before, during, and after sedation. The total sedation time was 30 minutes. Documentation face to face time, the performing proceduralist, spent monitoring the patient: 30 minut es. After sterile skin prep, 10 cc 1% lidocaine was utilized for local sedation. A coaxial 17 gauge 15 c m was advanced toward the lower pole cortex of the left kidney. After needle position confirmed mult iple 18 gauge core biopsies were obtained. Additional imaging was obtained demonstrating needle biop sy trough across the lower pole cortex. 4 cores of tissue from the left kidney were obtained. The b iopsy tract was embolized with Gelfoam. All CT scanners at this facility use dose modulation, iterative reconstruction, and/or weight based d osing when appropriate to reduce radiation dose to as low as reasonably achievable (ALARA). [facility]: Dose Right [facility]: CareDose [facility]: Dose Right [facility]: Teradose 4D [facility]: Lighting by LED FINDINGS: Intraprocedural imaging demonstrates needle at the lower pole renal cortex with biopsy tro ugh across the lower cortex. No evidence of immediate complication. Pathology pending at the time of dictation. IMPRESSION: CT GUIDED LEFT KIDNEY CORTICAL BIOPSY. COMMENT: Patient medication list reviewed:Yes- Quality ID# [id number]:Eligible professional attests to docu menting in the medical record they obtained, updated, or reviewed the patient's current medications.. TECHNICAL DOCUMENTATION: JOB ID: [id number] Quality ID #[id number]: Final reports for procedures using fluoroscopy that document radiation exposure jillian gianluca, or exposure time and number of fluorographic images (if radiation exposure indices are not avail able) Quality ID # [id number]: Final reports with documentation of one or more dose reduction techniques (e.g., Au tomated exposure control, adjustment of the mA and/or kV according to patient size, use of iterative reconstruction technique) 2010 [employer]- All Rights Reserved Reading location - IP/workstation name: [email or web address]
--- NOTE | 2020-02-22 11:00 | RADIOLOGY REPORT (SQ) ---
EXAM DESCRIPTION: CT BIOPSY RENAL; CT NEEDLE PLACEMENT IMAGES COMPLETED DATE/TIME: 02/22/2020 10:27 am; 02/22/2020 10:25 am REASON FOR STUDY: CKD STAGE 3; CKD STAGE 3, RENAL BIOPSY N18.3 CHRONIC KIDNEY DISEASE, STAGE 3 (MOD ERATE) COMPARISON: 01/17/2020 RADIATION DOSE: CT Rad equipment meets quality standard of care and radiation dose reduction techniq ues were employed. CTDIvol: 4.8 - 20.3 mGy. DLP: 622 mGy-cm. mGy. LIMITATIONS: None. PROCEDURE: After obtaining informed consent and explaining the risks and benefits of conscious sedat ion,the patient agreed to the procedure. Preliminary CT scanning to localize the biopsy site was performed. A site was marked on the left kid toro and time out was performed. Procedure was performed using CT fluoroscopy. Total exposure time: 1 5.[address] fluoroscopic images were obtained and saved to PACS. IV conscious sedation was administered and physician direction by the registered nurse using 1 millig chasidy of Versed and 50 micrograms of fentanyl. Physiologic monitoring was provided before, during, and after sedation. The total sedation time was 30 minutes. Documentation face to face time, the performing proceduralist, spent monitoring the patient: 30 minut es. After sterile skin prep, 10 cc 1% lidocaine was utilized for local sedation. A coaxial 17 gauge 15 c m was advanced toward the lower pole cortex of the left kidney. After needle position confirmed mult iple 18 gauge core biopsies were obtained. Additional imaging was obtained demonstrating needle biop sy trough across the lower pole cortex. 4 cores of tissue from the left kidney were obtained. The b iopsy tract was embolized with Gelfoam. All CT scanners at this facility use dose modulation, iterative reconstruction, and/or weight based d osing when appropriate to reduce radiation dose to as low as reasonably achievable (ALARA). [facility]: Dose Right [facility]: CareDose [facility]: Dose Right [facility]: Teradose 4D [facility]: Symvato FINDINGS: Intraprocedural imaging demonstrates needle at the lower pole renal cortex with biopsy tro ugh across the lower cortex. No evidence of immediate complication. Pathology pending at the time of dictation. IMPRESSION: CT GUIDED LEFT KIDNEY CORTICAL BIOPSY. COMMENT: Patient medication list reviewed:Yes- Quality ID# [id number]:Eligible professional attests to docu menting in the medical record they obtained, updated, or reviewed the patient's current medications.. TECHNICAL DOCUMENTATION: JOB ID: [id number] Quality ID #[id number]: Final reports for procedures using fluoroscopy that document radiation exposure jillian gianluca, or exposure time and number of fluorographic images (if radiation exposure indices are not avail able) Quality ID # [id number]: Final reports with documentation of one or more dose reduction techniques (e.g., Au tomated exposure control, adjustment of the mA and/or kV according to patient size, use of iterative reconstruction technique) 2010 [employer]- All Rights Reserved Reading location - IP/workstation name: [email or web address]
[2020-02-22 12:31] VITALS: BP 177/95
== END 2020-02-22 12:25 | disposition home or self-care (01) ==
LOC: RAD 05:40
PROVIDERS: ATTEND Physician Assistant Medical
DX: E11.22 Type 2 diabetes mellitus with diabetic chronic kidney disease (principal); I12.9 Hypertensive chronic kidney disease with stage 1 through stage 4 chronic kidney disease, or unspecified chronic kidney disease; N18.3 Chronic kidney disease, stage 3 (moderate); Z03.818 Encounter for observation for suspected exposure to other biological agents ruled out; E78.5 Hyperlipidemia, unspecified; Z79.899 Other long term (current) drug therapy; R80.1 Persistent proteinuria, unspecified; N25.0 Renal osteodystrophy; D64.89 Other specified anemias
CPT/HCPCS: 36415; 84520; 82565; 82947; 85027; 85610; 85730; 88346 ×2; 88348 ×2; 88313 ×2; 77012; 50200; J2250; J3010

== ENCOUNTER → 2020-03-14 | Outpatient (CLI) | payer BC ==
[2020-03-14 10:53] LABS: HEMATOCRIT 30.1 % (37.9-51.0); HEMOGLOBIN 9.8 g/dL (13.5-17.0); MEAN CORPUSCULAR HEMOGLOBIN 27.4 pg (27.0-33.4); MEAN CORPUSCULAR HGB CONC 32.5 g/dL (32.0-36.0); MEAN CORPUSCULAR VOLUME 84 fl (80-97); PLATELET COUNT 267 10^3/uL (150-450); RED BLOOD COUNT 3.56 10^6/uL (4.35-5.55); RED CELL DISTRIBUTION WIDTH 13.7 % (11.5-14.0); WHITE BLOOD COUNT 5.8 10^3/uL (4.0-10.5)
[2020-03-14 10:58] LABS: APPEARANCE,URINE CLEAR; BILIRUBIN,URINE NEGATIVE (NEGATIVE); COLOR,URINE STRAW; GLUCOSE, URINE 50 mg/dL (NEGATIVE); KETONES,URINE NEGATIVE (NEGATIVE); LEUKOCYTE ESTERASE,URINE NEGATIVE (NEGATIVE); NITRITE,URINE NEGATIVE (NEGATIVE); PROTEIN,URINE >=500 mg/dL (NEGATIVE); URINE SPECIFIC GRAVITY 1.009; UROBILINOGEN,URINE NEGATIVE mg/dL (<2.0)
[2020-03-14 11:14] LABS: ALBUMIN 3.1 g/dL (3.5-5.0); BLOOD UREA NITROGEN 53 mg/dL (7-20); CALCIUM 8.2 mg/dL (8.4-10.2); GLUCOSE 80 mg/dL (75-110); PHOSPHORUS 5.6 mg/dL (2.5-4.5); POTASSIUM 5.7 mmol/L (3.6-5.0)
[2020-03-14 11:19] LABS: CARBON DIOXIDE 25 mmol/L (22-30); CHLORIDE 110 mmol/L (98-107)
[2020-03-14 11:25] LABS: ANION GAP 4 (5-19)
[2020-03-14 11:42] LABS: URINE CREATININE 56.6 mg/dL (22-328)
[2020-03-14 11:54] LABS: UR PRO/CREAT RATIO RESULT 8.7 mg/mg (0.0-0.2); URINE PROTEIN 490.9 mg/dL (<12)
== END ==
LOC: OD 10:16
PROVIDERS: ATTEND Physician Assistant Medical
DX: N25.0 Renal osteodystrophy (principal)
CPT/HCPCS: 36415; 80069; 81001; 82570; 83970; 84156; 85027

== ENCOUNTER → 2020-03-17 | Outpatient (CLI) | payer BC ==
[2020-03-17 14:55] LABS: CALCIUM 7.9 mg/dL (8.4-10.2)
[2020-03-17 15:36] LABS: POTASSIUM 6.2 mmol/L (3.6-5.0)
== END ==
LOC: OD 13:50
PROVIDERS: ATTEND Physician Assistant Medical
DX: N18.4 Chronic kidney disease, stage 4 (severe) (principal); E83.51 Hypocalcemia; E87.5 Hyperkalemia
CPT/HCPCS: 36415; 82310; 84132

== ENCOUNTER → 2020-04-22 | Outpatient (CLI) | payer BC ==
[2020-04-22 16:29] LABS: HEMATOCRIT 29.3 % (37.9-51.0); HEMOGLOBIN 9.6 g/dL (13.5-17.0); MEAN CORPUSCULAR HEMOGLOBIN 27.4 pg (27.0-33.4); MEAN CORPUSCULAR HGB CONC 32.6 g/dL (32.0-36.0); MEAN CORPUSCULAR VOLUME 84 fl (80-97); PLATELET COUNT 301 10^3/uL (150-450); RED BLOOD COUNT 3.49 10^6/uL (4.35-5.55); RED CELL DISTRIBUTION WIDTH 12.9 % (11.5-14.0); WHITE BLOOD COUNT 5.2 10^3/uL (4.0-10.5)
[2020-04-22 16:32] LABS: APPEARANCE,URINE CLEAR; BILIRUBIN,URINE NEGATIVE (NEGATIVE); COLOR,URINE STRAW; GLUCOSE, URINE 150 mg/dL (NEGATIVE); KETONES,URINE NEGATIVE (NEGATIVE); LEUKOCYTE ESTERASE,URINE NEGATIVE (NEGATIVE); NITRITE,URINE NEGATIVE (NEGATIVE); PROTEIN,URINE >=500 mg/dL (NEGATIVE); URINE SPECIFIC GRAVITY 1.011; UROBILINOGEN,URINE NEGATIVE mg/dL (<2.0)
[2020-04-22 16:58] LABS: ALBUMIN 2.9 g/dL (3.5-5.0); ANION GAP 6 (5-19); BLOOD UREA NITROGEN 56 mg/dL (7-20); CALCIUM 7.6 mg/dL (8.4-10.2); CARBON DIOXIDE 25 mmol/L (22-30); CHLORIDE 109 mmol/L (98-107); GLUCOSE 199 mg/dL (75-110); PHOSPHORUS 5.1 mg/dL (2.5-4.5); POTASSIUM 4.3 mmol/L (3.6-5.0)
[2020-04-22 17:29] LABS: URINE CREATININE 79.1 mg/dL (22-328)
[2020-04-22 17:48] LABS: UR PRO/CREAT RATIO RESULT 9.6 mg/mg (0.0-0.2); URINE PROTEIN 758.9 mg/dL (<12)
== END ==
LOC: OD 15:37
PROVIDERS: ATTEND Physician Assistant Medical
DX: R80.1 Persistent proteinuria, unspecified (principal); N25.0 Renal osteodystrophy
CPT/HCPCS: 36415; 80069; 81001; 82570; 84156; 85027

== ENCOUNTER → 2020-08-04 | Outpatient (CLI) | payer BC ==
[2020-08-04 14:47] LABS: IRON(TIBC) 46.7 ug/dL (49-181)
== END ==
LOC: OD 12:13
PROVIDERS: ATTEND Internal Medicine Nephrology
DX: N18.5 Chronic kidney disease, stage 5 (principal); D63.1 Anemia in chronic kidney disease
CPT/HCPCS: 36415; 82728; 83540; 83550